=== PATIENT | male | born 1950 | race Caucasian/White ===

== ENCOUNTER 2017-10-15 07:35 | Outpatient (CLI) | payer MEDICARE, OTHER, SELFPAY ==
--- NOTE | 2017-10-15 07:38 | DI.RAD.S_ITS ---
PROCEDURE: PAIN L/S TRANSFORAMINAL INJECT INDICATIONS: Right lower extremity radiculopathy status post fusion FINDINGS: Fluoroscopic spot filming was performed to verify placement of spinal needles at the right L3-4 level(s), as labeled on the films. Appropriate location(s) of the needle tip(s) was confirmed by injection of iodinated contrast. IMPRESSION: Intraoperative verification of needle placement L3-4 level. Dictated by: James Eubanks M.D. on 10/15/2017 at 13:11 Approved by: James Eubanks M.D. on 10/15/2017 at 13:13
[2017-10-15 07:47] VITALS: BP 166/88; PULSE 66; RESP 18; TEMP 36.6; O2SAT 99
[2017-10-15 08:17] VITALS: BP 165/96; PULSE 65; RESP 16; O2SAT 99
[2017-10-15] MEDS: BUPIVACAINE 0.25% (PF) VIAL 2 ML INJ (08:21)
[2017-10-15] MEDS: IOPAMIDOL 15 ML VIAL 3 ML INJ (08:21)
[2017-10-15] MEDS: methylPREDNISolone acetate 80 MG/ML VIAL INJ (08:22)
[2017-10-15] MEDS: DEXAMETHASONE 10 MG/ML VIAL 20 MG INJ (08:22)
[2017-10-15 08:25] VITALS: BP 153/92; PULSE 65; RESP 16; O2SAT 98
--- NOTE | 2017-10-15 08:35 | P.PCN_ITS ---
Procedures Date/Time Date of procedure: 10/15/17 Time of procedure: 08:34 General Procedure description: PROVIDER: Jhon Kulkarni DO Operative Note PREOP DIAGNOSIS 1. FORAMINAL STENOSIS WITH LE SYMPTOMS, POST OP DIAGNOSIS 1. FORAMINAL STENOSIS WITH LE SYMPTOMS, PROCEDURES 1. FLUOROSCOPICALLY GUIDED CONTRAST CONTROLLED TRANSFORAMINAL EPIDURAL STEROID INJECTION - RIGHT L3/4 TFESI SURGEON: Jhon Kulkarni DO INDICATIONS Jhon is referred by for treatment of Foraminal Stenosis with right LE Symptoms FINDINGS Foraminal Nerve Root Compression secondary to disc disease and facet hypertrophy DESCRIPTION OF PROCEDURE Following denial of allergy and review of potential side effects and complications, including, but not necessarily limited to, infection, allergic reaction, local tissue breakdown, stroke, temporary or permanent nerve injury, paralysis, and possible , the patient indicated that the patient understood and agreed to proceed. An informed consent document was signed by the patient, witnessed by a nurse, and placed in the patient's chart. Additionally, other treatment options including medications, modalities, and physical therapy were reviewed with the patient. After review of previous anaesthesic history and IV conscious sedation the patient was deemed safe to proceed with todays procedure with IV conscious sedation as ASA class II designation. Safety time-out was performed to confirm patient ID, procedure to be performed and site of procedure. IV sedation was deemed not necessary. During the course of the procedure while the patient remained responsive to all verbal commands In the prone position following sterile prep and drape of the lumbar region, the right L3/4 posterior neuroforamen was identified fluoroscopically. The skin was anesthetized via a 25-gauge 1.5-inch needle with 1% lidocaine solution. At this point, a 25-gauge 3.5-inch spinal needle was atraumatically introduced and advanced under fluoroscopic guidance through the posterior right L3/4 neuroforamen to approximately the anterior aspect of the canal. Depth was confirmed on lateral view. Following negative aspiration, injection of approximately 1.5 cc of Isovue 200 under live fluoroscopy in the AP view confirmed excellent flow along the nerve root, into the epidural space without vascular or intrathecal uptake observed Radiological data, including multiple fluoroscopic views of the lumbosacral spine, reveal a spinal needle at the right L3/4 posterior neuroforamen. Subsequent views show flow of contrast material flowing superiorly and inferiorly along the nerve root confirming epidural flow. Subsequently, a test dose of 1.5 cc of 1% lidocaine solution was administered and patient was observed for two minutes for signs or symptoms of complications , including abdominal pain, shortness of breath, bilateral upper or lower extremity weakness, nausea and vomiting, prior to steroid injection. At this point, a total of 3 cc or 20 mg of dexamethasone and 80mg Depo medrol was injected without incident. The procedure tolerated the procedure well without signs or symptoms of complications prior to transfer to the recovery area continued monitoring without incident. The patient was then transferred to the recovery area where they were observed for an appropriate time after the injection. The patient reported a VAS score of 7 prior to the procedure and a post-procedure VAS of 0. Total Fluoroscopy Time: 24.2 seconds Total Conscious Sedation Time: 0min POST OP INSTRUCTIONS The patient was provided a Pain Log to continue to record their response to the target-specific procedure prior to follow-up visit with their referring physician. Additionally, specific post-injection care instructions and a contact number to our office were provided if concerns arise regarding possible complications associated with the procedure are suspected. Jhon Kulkarni DO Complications: none
[2017-10-15 08:41] VITALS: BP 138/72; PULSE 61; RESP 18; O2SAT 99
--- NOTE | 2017-10-15 08:47 | PC.NURSE ---
PT WALKED LENGTH OF HALLWAY TO RECREATE PAIN PER MD REQUEST. PT C/O 05/18 R LOWER BACK PAIN BUT STATES IT DOES NOT RADIATE TO LEFT SIDE AND IS BETTER THAN BEFORE THE PROCEDURE.
--- NOTE | 2017-10-16 17:46 | PC.NURSE ---
Follow up visit call, left message as patient was not at home or answering phone.
== END 2017-10-15 09:12 | disposition home or self-care (01) ==
LOC: RAD 07:37
PROVIDERS: PCP Family Medicine; Visit Provider Physical Medicine & Rehabilitation
DX: M48.061 Spinal stenosis, lumbar region without neurogenic claudication (principal); M51.16 Intervertebral disc disorders with radiculopathy, lumbar region; Z98.1 Arthrodesis status
CPT/HCPCS: 64483; J1040; J1100; J2250

== ENCOUNTER 2018-08-26 14:52 | Outpatient (CLI) | payer MEDICARE, OTHER, SELFPAY ==
[2018-08-26] VITALS (8 sets, daily range): BP systolic 126–159; BP diastolic 77–94; PULSE 56–70; RESP 16–18; TEMP 36.9; O2SAT 96–98
--- NOTE | 2018-08-26 14:55 | DI.RAD.S_ITS ---
PROCEDURE: PAIN L/S TRANSFORAMINAL INJECT INDICATIONS: RADICULOPATHY FINDINGS: Fluoroscopic spot filming was performed to verify placement of spinal needles at the L2-L3 level(s), as labeled on the films. Appropriate location(s) of the needle tip(s) was confirmed by injection of iodinated contrast. Dictated by: Jordan Gómez M.D. on 08/26/2018 at 16:12 Approved by: Jordan Gómez M.D. on 08/26/2018 at 16:13
[2018-08-26] MEDS: fentaNYL 100 MCG/2 ML INJ 50 MCG IV (15:26)
[2018-08-26] MEDS: MIDAZOLAM 5 MG/5 ML VIAL IV (15:26)
[2018-08-26] MEDS: BETAMETHASONE 30 MG/5 ML MDV 12 MG INJ (15:36)
[2018-08-26] MEDS: BUPIVACAINE 0.5% (PF) VIAL 2 ML INJ (15:36)
[2018-08-26] MEDS: IOPAMIDOL 15 ML VIAL 3 ML INJ (15:36)
--- NOTE | 2018-08-26 15:38 | PC.NURSE ---
ASSISTING PT OFF TABLE AND TRANSPORTING TO POST PROC AREA IN STABLE CONDITION
--- NOTE | 2018-08-26 15:43 | P.PCN_ITS ---
Procedures Date/Time Date of procedure: 08/26/18 Time of procedure: 15:40 General Procedure description: PROVIDER: Jhon Kulkarni DO Operative Note PREOP DIAGNOSIS 1. FORAMINAL STENOSIS WITH LE SYMPTOMS, POST OP DIAGNOSIS 1. FORAMINAL STENOSIS WITH LE SYMPTOMS, PROCEDURES 1. FLUOROSCOPICALLY GUIDED CONTRAST CONTROLLED TRANSFORAMINAL EPIDURAL STEROID INJECTION - RIGHT L2/3 TFESI SURGEON: Jhon Kulkarni, INDICATIONS Jhon is referred by Dr. Nicole for treatment of Foraminal Stenosis with right LE Symptoms FINDINGS Foraminal Nerve Root Compression secondary to disc disease and facet hypertrophy DESCRIPTION OF PROCEDURE Following review of allergy and review of potential side effects and complications, including, but not necessarily limited to, infection, allergic reaction, local tissue breakdown, stroke, temporary or permanent nerve injury, paralysis, and possible , the patient indicated that the patient understood and agreed to proceed. An informed consent document was signed by the patient, witnessed by a nurse, and placed in the patient's chart. Additionally, other treatment options including medications, modalities, and physical therapy were reviewed with the patient. After review of previous anaesthesic history and IV conscious sedation the patient was deemed safe to proceed with todays procedure with IV conscious sedation as ASA class II designation. Safety time-out was performed to confirm patient ID, procedure to be performed and site of procedure. IV sedation was accomplished with a combination of 3mg of Versed and 50mcg of Fentanyl was administered by the RN after DO order, titrated to patient comfort during the course of the procedure while the patient remained responsive to all verbal commands In the prone position following sterile prep and drape of the lumbar region, the right L2/3 posterior neuroforamen was identified fluoroscopically. The skin was anesthetized via a 25-gauge 1.5-inch needle with 1% lidocaine solution. At this point, a 25-gauge 3.5-inch spinal needle was atraumatically introduced and advanced under fluoroscopic guidance through the posterior right L2/3 neuroforamen to approximately the anterior aspect of the canal. Depth was confirmed on lateral view. Following negative aspiration, injection of approximately 1.5 cc of Isovue 200 under live fluoroscopy in the AP view confirmed excellent flow along the nerve root, into the epidural space without vascular or intrathecal uptake observed Radiological data, including multiple fluoroscopic views of the lumbosacral spine, reveal a spinal needle at the right L2/3 posterior neuroforamen. Subs equent views show flow of contrast material flowing superiorly and inferiorly along the nerve root confirming epidural flow. Subsequently, a test dose of 1.5 cc of 1% lidocaine solution was administered and patient was observed for two minutes for signs or symptoms of complications, including abdominal pain, shortness of breath, bilateral upper or lower extremity weakness, nausea and vomiting, prior to steroid injection. At this point, a total of 3cc or 18mg of dexamethasone was injected without incident. The patient tolerated the procedure well without signs or symptoms of complications prior to transfer to the recovery area continued monitoring without incident. The patient was then transferred to the recovery area where they were observed for an appropriate time after the injection. The patient reported a VAS score of 7 prior to the procedure and a post-procedure VAS of 0. Total Fluoroscopy Time: 24.2 seconds Total Conscious Sedation Time: 24min POST OP INSTRUCTIONS The patient was provided a Pain Log to continue to record their response to the target-specific procedure prior to follow-up visit with their referring physician. Additionally, specific post-injection care instructions and a contact number to our office were provided if concerns arise regarding possible complications associated with the procedure are suspected. Jhon Kulkarni, DO Complications: none
--- NOTE | 2018-08-26 15:51 | PC.NURSE ---
Pt returned from procedure awake and alert via wheelchair, able to get from W/C to chair without problems. Resumed monitoring from Bella ESPA[facility]A.
== END 2018-08-26 16:14 ==
LOC: RAD 14:54
PROVIDERS: PCP Family Medicine; Visit Provider Physical Medicine & Rehabilitation
DX: M48.061 Spinal stenosis, lumbar region without neurogenic claudication (principal); M51.16 Intervertebral disc disorders with radiculopathy, lumbar region
CPT/HCPCS: 64483; 99152; J0702; J2250; J3010

== ENCOUNTER 2018-10-02 13:20 | Outpatient (CLI) | payer MEDICARE, OTHER, SELFPAY ==
[2018-10-02] VITALS (9 sets, daily range): BP systolic 130–155; BP diastolic 67–91; PULSE 53–61; RESP 16; TEMP 36.1; O2SAT 95–100
--- NOTE | 2018-10-02 13:22 | DI.RAD.S_ITS ---
PROCEDURE: PAIN L/S FACET INJ/BLK 1ST LIZZ COMPARISON: None. INDICATIONS: SPINAL STENOSIS FINDINGS: 6 intraoperative fluoroscopy images demonstrate needle placement at the L2-L3 and L3-L4 facet joints bilaterally. IMPRESSION: Fluoroscopy for pain management. Dictated by: Maria Guadalupe Faria M.D. on 10/02/2018 at 17:38 Approved by: Maria Guadalupe Faria M.D. on 10/02/2018 at 17:38
[2018-10-02] MEDS: fentaNYL 100 MCG/2 ML INJ 50 MCG IV (14:45)
[2018-10-02] MEDS: MIDAZOLAM 5 MG/5 ML VIAL IV (14:45)
[2018-10-02] MEDS: IOPAMIDOL 15 ML VIAL 3 ML INJ (14:54)
[2018-10-02] MEDS: BUPIVACAINE 0.5% (PF) VIAL 5 ML INJ (14:54)
[2018-10-02] MEDS: LIDOCAINE 1% 20 ML INJ 10 ML INJ (14:55)
[2018-10-02] MEDS: BETAMETHASONE 30 MG/5 ML MDV 12 MG INJ (14:55)
--- NOTE | 2018-10-02 14:57 | PC.NURSE ---
Pt tolerated procedure well. Able to get off table with standby assist. Transferred pt to preprocedure room via wheelchair for continued monitoring with Bella ESPA[facility]A.
--- NOTE | 2018-10-02 15:03 | P.PCN_ITS ---
Procedures Date/Time Date of procedure: 10/02/18 Time of procedure: 15:01 General Procedure description: PREOP DIAGNOSIS 1. FACET ARTHROPATHY, 2. AXIAL LBP, 3. MULTILEVEL DDD, POST OP DIAGNOSIS 1. FACET ARTHROPATHY, 2. AXIAL LBP, 3. MULTILEVEL DDD, PROCEDURES 1. FLUORSCOPICALLY GUIDED CONTRAST CONTROLLED FACET JOINT INJECTIONS BILATERAL L2/3, L3/4 SURGEON: Jhon Kulkarni, INDICATION Jhon is referred by Dr. Nicole is referred for treatment of Axial LBP FINDINGS Multilevel Facet Arthropathy with Clinically significant axial LBP DESCRIPTION OF PROCEDURE Fluoroscopically guided, contrast-controlled bilateral L2/3, L3/4 facet joint injections. Following review of allergy and review of potential side effects and complications, including, but not necessarily limited to, infection, allergic reaction, local tissue breakdown, stroke, temporary or permanent nerve injury, paralysis, and possible , the patient indicated that the patient understood and agreed to proceed. An informed consent document was signed by the patient, witnessed by a nurse, and placed in the patient's chart. Additionally, other treatment options including medications, modalities, and physical therapy were reviewed with the patient. After review of previous anaesthesic history and IV conscious sedation the patient was deemed safe to proceed with todays procedure with IV conscious sedation as ASA class II designation. Safety time-out was performed to confirm patient ID, procedure to be performed and site of procedure. IV sedation was accomplished with a combination of 2mg of Versed and 50mcg of Fentanyl administered by the RN after DO order, titrated to patient comfort during the course of the procedure while the patient remained responsive to all verbal commands In the prone position, following sterile prep and drape of the lumbar region, the posterior aspect of the L2/3, L3/4 facet joints were identified fluoroscopically. The skin was anesthetized via a 25-gauge 1.5-inch needle with 1% lidocaine solution into the corresponding facet joints. At this point, a 22- gauge 3.5-inch spinal needle was atraumatically introduced and advanced under fluoroscopic guidance into the corresponding facet joints. Following negative aspiration, injections of approximately 0.2-cc of Isovue 200 confirmed interarticular placement without vascular uptake. The identical procedure was then performed at the L2/3, L3/4 facet joints on the left. Radiological data, including multiple fluoroscopic views of the lumbosacral spine, reveal a spinal needle at the L2/3, L3/4 facet joints bilaterally. Subsequent views show flow of contrast material both superiorly and inferiorly within the joint space without vascular or intrathecal uptake. At this point, a total of 0.5 cc including a mixture of 0.25cc Marcaine and 0.25 cc betamethasone was injected without complication into each of the corresponding facet joints. The patient tolerated the procedure well without signs or symptoms of complications prior to transfer to the recovery area continued monitoring without incident. The patient was then transferred to the recovery area where they were observed for an appropriate period of time after the injection. The patient reported a VAS score of 7 prior to the procedure and a post-procedure VAS of 0. Total Fluoroscopy Time: 20.3 seconds Total Conscious Sedation Time: 24min POST OP INSTRUCTIONS The patient was provided a Pain Log to continue to record their response to the target-specific procedure prior to follow-up visit with their referring physician. Additionally, specific post-injection care instructions and a contact number to our office were provided if concerns arise regarding possible complications associated with the procedure are suspected. Jhon Kulkarni DO Complications: none
== END 2018-10-02 15:26 | disposition home or self-care (01) ==
LOC: RAD 13:22
PROVIDERS: PCP Family Medicine; Visit Provider Physical Medicine & Rehabilitation
DX: M47.816 Spondylosis without myelopathy or radiculopathy, lumbar region (principal); M54.17 Radiculopathy, lumbosacral region; M47.817 Spondylosis without myelopathy or radiculopathy, lumbosacral region
CPT/HCPCS: 64493; 64494; 99152; J0702; J2250; J3010

== ENCOUNTER 2019-11-14 23:02 | Emergency (ER) | payer MEDICARE, OTHER, SELFPAY ==
--- NOTE | 2019-11-14 23:03 | DI.RAD.S_ITS ---
PROCEDURE: XR SHOULDER RT 1V INDICATIONS: Shoulder dislocation TECHNIQUE: 1 views of the shoulder were acquired. COMPARISON: [facility], CR, XR SHOULDER RT MIN 2V, 11/15/2019, 1:02. FINDINGS: This study is limited by overlying radiopaque material, presumed to be an ice pack. Bones: The right humeral head is dislocated inferiorly to the right glenoid. Age-appropriate bony degenerative changes are seen. Soft tissues: No suspicious soft tissue calcifications. The visualized lung demonstrates an unremarkable appearance. IMPRESSION: Right inferior shoulder dislocation, with luxatio erecta. Dictated by: Christopher Caldwell M.D. on 11/15/2019 at 9:06 Approved by: Christopher Caldwell M.D. on 11/15/2019 at 9:08
[2019-11-14 23:09] VITALS: BP 162/98; PULSE 60; RESP 18; TEMP 37.1; O2SAT 98; BMI 32.3
[2019-11-14 23:30] VITALS: BP 160/82; PULSE 59; O2SAT 98
--- NOTE | 2019-11-14 23:40 | ED_ITS ---
HPI - Extremity Injury (Upper) General Chief Complaint: Extremity Injury, Upper Stated Complaint: Dislocated shoulder Time Seen by Provider: 11/14/19 23:05 Source: patient and EMS Mode of arrival: Ambulatory Limitations: no limitations History of Present Illness HPI narrative: 68-year-old male daily drinker and nonsmoker with history of hypertension presents with a chief complaint of a right shoulder injury suffered this evening. He was walking up some stairs and tripped and fell forward onto his right arm and now has significant pain and decreased range of motion secondary to pain and mechanical obstruction. He denies any head neck or back pain. He strongly suspects that he has dislocated shoulder. He does have some tingling in the fingertips of his right arm. He is right-handed. He denies any history of dislocation but does have a rotator cuff history on the side of his injury. He injured himself on [facility] and brought himself to [facility] on his own boat. He called 911 and EMS met him at the dock, placed and IV, and transported him here. He was given some pain control by EMS MD complaint: injury to: right and shoulder Onset (ago): hour(s) Other injuries: none Handedness: right Place: home Severity: moderate Relieving factors: none Exacerbating factors: movement of extremity Context: fall and direct blow Associated symptoms: numbness Treatments prior to arrival: cold therapy Related Data Home Medications Medication Instructions Recorded Confirmed allopurinol 100 mg tablet 100 mg PO DAILY 10/04/17 08/18/18 amlodipine 5 mg tablet 5 mg PO DAILY 10/04/17 08/18/18 diazepam 10 mg tablet 10 mg PO TID PRN 10/04/17 08/18/18 gabapentin 300 mg capsule 300 mg PO DAILY 10/04/17 08/18/18 lisinopril 20 mg tablet 20 mg PO DAILY 10/04/17 08/18/18 metoprolol tartrate 50 mg tablet 50 mg PO BID 10/04/17 08/18/18 aspirin 325 mg tablet 325 mg PO Q12H tab 09/16/18 09/16/18 docusate sodium 100 mg capsule 100 mg PO Q12H PRN cap 09/16/18 09/16/18 fexofenadine 30 mg disintegrating 30 mg PO BID PRN tab 09/16/18 09/16/18 tablet lansoprazole 30 mg capsule,delayed 30 mg PO DAILY 09/16/18 09/16/18 release oxycodone-acetaminophen 5 mg-325 1 - 2 tab PO Q4-6H PRN tab 09/16/18 09/16/18 mg tablet tramadol 50 mg tablet 50 mg PO Q4-6H PRN tab 09/16/18 09/16/18 Allergies Allergy/AdvReac Type Severity Reaction Status Date / Time No Known Drug Allergies Allergy Verified 11/14/19 23:09 Review of Systems Constitutional Constitutional: Denies chills, Denies fatigue, Denies fever(s), Denies frequent falls, Denies lethargy and Denies weakness Eyes Eyes: Denies change in vision, Denies eye discharge, Denies irritation and Denies loss of vision ENT Ears, Nose, Mouth, and Throat: Denies change in voice, Denies dizziness, Denies neck pain, Denies sore throat and Denies throat swelling Cardiovascular Cardiovascular: Denies chest pain, Denies irregular heart rhythm, Denies lightheadedness, Denies palpitations, Denies dyspnea, Denies dyspnea on exertion and Denies orthopnea Respiratory Respiratory: Denies cough, Denies dyspnea, Denies dyspnea on exertion and Denies wheezing Gastrointestinal Gastrointestinal: Denies abdominal pain, Denies change in bowel habits, Denies diarrhea, Denies nausea and Denies vomiting Musculoskeletal Musculoskeletal: Reports deformity, Reports arthralgias, Reports joint swelling, Denies neck pain and Denies numbness Integumentary/Breasts Skin/Breast: Denies pruritus, Denies erythema, Denies rash and Denies wounds Neurologic Neurologic: Denies behavioral changes, Denies confusion, Denies dizziness, Denies frequent falls, Denies loss of vision, Denies numbness and Denies weakness Psychiatric Psychiatric: Denies anxiety, Denies behavioral changes, Denies confusion, Denies depression, Denies homicidal ideation and Denies suicidal ideation Endocrine Endocrine: Denies fatigue, Denies flushing and Denies palpitations Hematologic/Lymphatic Hematologic/Lymphatic: Denies easy bruising Allergic/Immunologic Allergic/Immunologic: Denies urticaria, Denies throat swelling and Denies wheezing Patient History Social History Smoking Status: Never smoker alcohol intake: current substance use type: does not use Smoking Status: Never smoker alcohol intake frequency: 3 or more drinks per day Substance Use Type: does not use Exam Narrative Exam Narrative: GEN: AOx3 and in mild distress EYES: Pupils are equal, round, and reactive to light and accommodation. Extraoccular muscles are intact bilaterally. There is no subconjunctival hemorrhage or exudate. CHEST: Lungs are clear to auscultation bilaterally and free of wheezes, rales, or rhonchi. Heart rate is regular rhythm, there are no murmurs, clicks, rubs, or gallops. There is no chest wall tenderness. ABD: Abdomen is soft and nontender. There is no guarding or rebound. Bowel sounds are normal in all 4 quadrants. There is no mass or organomegaly. EXT: Obvious deformity right shoulder, arm held overhead due to the mechanical obstruction. Patient does have some tingling of the fingers of his right hand, radial pulse intact. SKIN: Warm, pink, and dry. No erythema or rash Initial Vital Signs Initial Vital Signs: Vital Signs Temperature 98.7 F 11/14/19 23:09 Pulse Rate 60 11/14/19 23:09 Respiratory Rate 18 11/14/19 23:09 Blood Pressure 162/98 H 11/14/19 23:09 Pulse Oximetry 98 11/14/19 23:09 Procedures Orthopedic Joint Reduction Joint #1: Time Out Performed: Yes Side: right Joint Reduction Location: shoulder Analgesia: procedural sedation Shoulder Technique Used (if applicable): traction/counter-traction, scapula manipulation and external rotation Post-reduction neuro exam: intact Post-reduction vascular: intact Post Reduction X-Ray Obtained: Yes Post Reduction X-Ray Results: reduced Splint Applied: Yes Patient Tolerated Procedure: Well Orthopedic Splinting/Casting Injury #1: Side: right Upper Extremity Injury Location: shoulder Upper Extremity Immobilizer: sling/shoulder immobilizer Post splinting neuro exam: intact Post splinting vascular exam: intact Placed by: Nursing Procedural Sedation Consent signed: Yes Time out performed: Yes Indication: fracture/dislocation reduction ASA Class: II Mallampati Airway Classification: Class II Preparation: general medical practitioner applied, pulse oximeter, capnometry used, supplemental O2 applied, suction/airway equipment at bedside and IV secured IV Propofol dose (mg): 200 Intraservice time/total sedation time (min): 10 ED Sedation Level: Moderate (Concious) Patient Tolerated Procedure: Well Complications: none Course Orders Ordered: ED Orders 11/14/19 23:03 XR shoulder LT 1V Stat 11/15/19 00:16 XR shoulder RT min 2V Stat Discontinued Medications Propofol (Diprivan) 220 mg 2 mg/kg (220 mg) IV NOW ONE Stop: 11/14/19 23:42 Last Admin: 11/15/19 00:12 Dose: 200 mg Documented by: AUGUSTIN Vital Signs Vital signs: Vital Signs - 8 hr 11/14/19 23:09 11/14/19 23:30 11/15/19 00:00 Temperature 98.7 F Pulse Rate 60 59 L 66 Respiratory Rate 18 17 Blood Pressure 162/98 H 160/82 H 165/83 H Blood Pressure [Left Arm] 165/83 H Pulse Oximetry 98 98 97 11/15/19 00:15 11/15/19 00:20 11/15/19 00:21 Temperature Pulse Rate 60 67 67 Respiratory Rate 17 16 18 Blood Pressure 120/77 Blood Pressure [Left Arm] 179/101 H 120/77 Pulse Oximetry 97 97 98 11/15/19 00:25 11/15/19 00:26 11/15/19 00:30 Temperature Pulse Rate 69 65 63 Respiratory Rate 20 16 11 L Blood Pressure 128/68 146/68 H Blood Pressure [Left Arm] Pulse Oximetry 98 98 11/15/19 00:35 11/15/19 00:37 11/15/19 00:40 Temperature Pulse Rate 64 66 66 Respiratory Rate 12 13 13 Blood Pressure 152/75 H 158/77 H 147/73 H Blood Pressure [Left Arm] Pulse Oximetry 97 99 99 11/15/19 00:45 Temperature Pulse Rate 65 Respiratory Rate 10 L Blood Pressure 162/79 H Blood Pressure [Left Arm] Pulse Oximetry 98 Discharge Plan Departure Patient Disposition: Home Clinical Impression: Anterior shoulder dislocation Qualifiers: Encounter type: initial encounter Laterality: right Qualified Code(s): S43.014A - Anterior dislocation of right humerus, initial encounter Discharge Date/Time: 11/15/19 01:43 Instructions: DI for Shoulder Dislocation Activity Restrictions/Additional Instructions: *You have been diagnosed with [right shoulder dislocation] *What to do: *Take medications as directed *Follow up with your primary care provider in 2-3 days, call for an appointment. Let them know you were seen in the Emergency Department and that we ask that you be seen in follow up. Additionally, I have given you contact information for the orthopedist on-call so you may follow-up as you surely of damage the soft tissue of her shoulder to your injury *Return to ER if you should have any new, worsening or concerning symptoms Prescriptions: No Action lisinopril 20 mg tablet 20 mg PO DAILY RF: 0 amlodipine 5 mg tablet 5 mg PO DAILY RF: 0 allopurinol 100 mg tablet 100 mg PO DAILY RF: 0 metoprolol tartrate 50 mg tablet 50 mg PO BID RF: 0 gabapentin 300 mg capsule 300 mg PO DAILY RF: 0 diazepam [Valium] 10 mg tablet 10 mg PO TID PRNRF: 0 fexofenadine 30 mg tablet,disintegrating 30 mg PO BID PRNRF: 0 aspirin 325 mg tablet 325 mg PO Q12H RF: 0 docusate sodium 100 mg capsule 100 mg PO Q12H PRNRF: 0 lansoprazole 30 mg capsule,delayed release(DR/EC) 30 mg PO DAILY RF: 0 oxycodone-acetaminophen 5-325 mg tablet 1 - 2 tab PO Q4-6H PRNRF: 0 tramadol 50 mg tablet 50 mg PO Q4-6H PRNRF: 0 Referrals: Arnie Solano MD [Physician] - Lawrence Nicole MD [Primary Care Provider] -
[2019-11-15] VITALS (11 sets, daily range): BP systolic 120–179; BP diastolic 68–101; PULSE 60–69; RESP 10–20; O2SAT 97–99
--- NOTE | 2019-11-15 00:16 | DI.RAD.S_ITS ---
PROCEDURE: XR SHOULDER RT MIN 2V INDICATIONS: post reduction. TECHNIQUE: 2 views of the shoulder were acquired. COMPARISON: [facility], CR, XR SHOULDER RT 1V, 11/14/2019, 23:27. FINDINGS: Bones: The right shoulder has been relocated. No soledad fracture line can be seen by plain film. The visualized ribs appear intact. Age-appropriate bony degenerative changes are seen. Moderate subacromial spurring is seen. Soft tissues: No suspicious soft tissue calcifications. The visualized lung demonstrates an unremarkable appearance. IMPRESSION: Right shoulder relocation. No associated fracture is seen on this plain film study. If there is strong clinical concern for a fracture not seen on these images, then please consider a dedicated shoulder CT for further evaluation. Dictated by: Christopher Caldwell M.D. on 11/15/2019 at 7:23 Approved by: Christopher Caldwell M.D. on 11/15/2019 at 7:24
[2019-11-15] MEDS: propofoL 200 MG/20 ML VIAL 220 MG IV (00:32)
== END 2019-11-15 01:43 | disposition home or self-care (01) ==
PROVIDERS: Emergency Provider Emergency Medicine; PCP Family Medicine
DX: S43.014A Anterior dislocation of right humerus, initial encounter (principal); W01.0XXA Fall on same level from slipping, tripping and stumbling without subsequent striking against object, initial encounter
CPT/HCPCS: 23650; 73020; 73030; 94770; 99152; 99284; 99285; J2704

== ENCOUNTER → 2019-11-25 06:37 | Outpatient (CLI) | payer MEDICARE, OTHER, SELFPAY ==
--- NOTE | 2019-11-25 | DI.MRI.S_ITS ---
PROCEDURE: MR SHOULDER RT WO CON INDICATIONS: Superior glenoid labrum lesion of right shoulder, TECHNIQUE: Noncontrast oblique coronal T2 fast spin echo with fat saturation, oblique sagittal T1 spin echo and T2 fast spin echo with fat saturation, axial T1 spin echo and T2 fast spin echo with fat saturation through the shoulder. COMPARISON: None. FINDINGS: Image quality: Excellent. Rotator cuff: There is full-thickness rupture involving distal supraspinatus and anterior fibers of distal infraspinatus at their insertions on humeral head with up to 4.3 cm medial retraction of torn tendon fibers to the level of acromion. Tendinosis and moderate grade articular surface partial thickness tear involving mid to posterior fibers of distal infraspinatus is seen. Distal subscapularis tendinosis and moderate grade intrasubstance partial-thickness tear is seen. Sagittal images demonstrate moderate supraspinatus and infraspinatus muscle atrophy. Bones and bursae: No bone marrow contusions or fractures. Moderate acromioclavicular joint osteoarthritis is seen. Mild to moderate glenohumeral joint osteoarthritis is also noted with superior migration of humeral head in relation to glenoid. Moderate amount of joint effusion and subacromial subdeltoid bursal fluid is seen. Capsule and soft tissues: In the absence of intra-articular contrast, there is suggestion of superior labral tear at 11 to 1 o'clock position. Extensive signal abnormality involving inferior labrum at 5 to 6 o'clock position is also seen. The glenohumeral ligaments appear intact. The long head of the biceps tendon is not well-visualized intra-articularly. The rotator interval appears normal, without fibrosis. The coracohumeral ligament is normal in thickness. IMPRESSION: 1. Full-thickness rupture involving distal supraspinatus and anterior fibers of distal infraspinatus at their insertions on humeral head with up to 4.3 cm medial retraction of torn tendon fibers to the level of acromion. Moderate supraspinatus and infraspinatus muscle atrophy. 2. Tendinosis and moderate grade articular surface partial-thickness tear involving mid to posterior fibers of distal supraspinatus. Moderate grade partial-thickness tear involving superior to mid fibers of distal subscapularis. 3. Moderate acromioclavicular joint and glenohumeral joint osteoarthritis. Moderate amount of joint fluid and subacromial subdeltoid bursal fluid. 4. Suggestion of superior labral tear at 11 to 1 o'clock position and anterior-inferior labral tear at 5 to 6 o'clock position. 5. Nonvisualization of proximal intra-articular portion of long head of biceps tendon suggestive of proximal bicipital tendon rupture. Dictated by: Charlie Fink M.D. on 11/25/2019 at 8:11 Approved by: Charlie Fink M.D. on 11/25/2019 at 8:16
== END ==
PROVIDERS: PCP Family Medicine; Referring Provider Orthopaedic Surgery; Visit Provider Orthopaedic Surgery
DX: S43.431S Superior glenoid labrum lesion of right shoulder, sequela (principal); M75.121 Complete rotator cuff tear or rupture of right shoulder, not specified as traumatic; M19.011 Primary osteoarthritis, right shoulder
CPT/HCPCS: 73221

== ENCOUNTER → 2020-08-29 11:11 | Outpatient (CLI) | payer MEDICARE, OTHER, SELFPAY ==
--- NOTE | 2020-08-29 11:14 | DI.MRI.S_ITS ---
PROCEDURE: MR LUMBAR SPINE WO CON INDICATIONS: Lumbar radiculopathy status post fusion TECHNIQUE: Noncontrast sagittal T1 spin echo and T2 fast echo, sagittal STIR, axial T1 and T2 fast spin echo through the lumbar spine. In cases with scoliosis, additional coronal T2 fast spin echo may be performed. COMPARISON: [facility], MR, MR LUMBAR SPINE WITHOUT CONTRAST, 04/23/2017, 8:43. FINDINGS: Image quality: Excellent. Alignment and Curvature: Grade 1 retrolisthesis of L2 on L3. Bone Marrow: No evidence of acute fracture. Multilevel degenerative endplate sclerosis and spurring. Diffuse facet arthropathy. Scattered small Schmorl's nodes are noted. Postsurgical changes related to posterior spinal fixation at the L4-L5 level as before. Spinal Cord: Conus medullaris terminates at the L1 level. Visualized cord demonstrates normal signal and size. Paraspinous Soft Tissues: No paravertebral masses. Diffuse dorsal epidural lipomatosis seen throughout the lumbar spine. T12-L1: Normal appearance. L1-L2: Mild canal narrowing. Partial effacement of both lateral recesses with bilaterally symmetric appearance. Moderate right foraminal stenosis. Mild left foraminal narrowing. No interval change. L2-L3: Moderate canal narrowing. Partial effacement of both lateral recesses with bilaterally symmetric appearance. No interval change. Moderate bilateral foraminal narrowing which is unchanged L3-L4: Mild canal narrowing. Partial effacement of both lateral recesses with bilaterally symmetric appearance. Moderate right foraminal stenosis and mild left foraminal stenosis which are unchanged. L4-L5: No high-grade residual canal narrowing. Lateral recesses appear grossly patent. Mild bilateral foraminal stenoses, with no interval change. L5-S1: Severe canal narrowing which is largely due to circumferential epidural lipomatosis as before. Partial effacement of both lateral recesses with bilaterally symmetric appearance. Moderate bilateral foraminal narrowing with unchanged appearance IMPRESSION: Overall, grossly unchanged examination since 04/23/17 as above. Prominent diffuse epidural lipomatosis as before. Dictated by: Jordan Gómez M.D. on 08/29/2020 at 13:16 Approved by: Jordan Gómez M.D. on 08/29/2020 at 13:28
== END ==
PROVIDERS: PCP Family Medicine; Referring Provider Physical Medicine & Rehabilitation; Visit Provider Physical Medicine & Rehabilitation
DX: M54.17 Radiculopathy, lumbosacral region (principal); Z98.1 Arthrodesis status; E88.2 Lipomatosis, not elsewhere classified
CPT/HCPCS: 72148

== ENCOUNTER → 2020-09-06 08:13 | Outpatient (CLI) | payer MEDICARE, OTHER, SELFPAY ==
[2020-09-06 14:37] LABS: COVID19 -Nasal RAPID Negative (Negative)
== END ==
PROVIDERS: PCP Family Medicine; Visit Provider Physical Medicine & Rehabilitation
DX: Z20.822 Contact with and (suspected) exposure to COVID-19 (principal)
CPT/HCPCS: 87635; C9803

== ENCOUNTER 2020-09-08 12:52 | Outpatient (CLI) | payer MEDICARE, OTHER, SELFPAY ==
[2020-09-08] VITALS (8 sets, daily range): BP systolic 111–149; BP diastolic 69–86; PULSE 62–68; RESP 14–20; TEMP 36.4; O2SAT 97–99
--- NOTE | 2020-09-08 12:53 | DI.RAD.S_ITS ---
PROCEDURE: PAIN L INTERLAMINAR/CAUDAL INJ INDICATIONS: SPONDYLOSIS COMPARISON: [facility], MR, MR LUMBAR SPINE WO CON, 08/29/2020, 11:15. [facility], CR, XR LUMBAR SPINE WITH FLEXION EXTENSION 5 VIEWS, 08/18/2020, 16:11. FINDINGS: Fluoroscopic spot filming was performed to verify placement of spinal needles at the L5-S1 level(s), as labeled on the films. Appropriate location(s) of the needle tip(s) was confirmed by injection of iodinated contrast. IMPRESSION: Fluoroscopy guidance for pain management. Dictated by: Maria Guadalupe Faria M.D. on 09/08/2020 at 15:23 Approved by: Maria Guadalupe Faria M.D. on 09/08/2020 at 15:24
[2020-09-08] MEDS: MIDAZOLAM 5 MG/5 ML VIAL IV (13:35)
[2020-09-08] MEDS: fentaNYL 100 MCG/2 ML INJ 50 MCG IV (13:35)
[2020-09-08] MEDS: IOPAMIDOL 15 ML VIAL 3 ML INJ (13:41)
[2020-09-08] MEDS: BUPIVACAINE 0.25% (PF) VIAL 2 ML INJ (13:42)
[2020-09-08] MEDS: methylPREDNISolone acetate 80 MG/ML VIAL INJ (13:42)
[2020-09-08] MEDS: DEXAMETHASONE 10 MG/ML VIAL 20 MG INJ (13:42)
--- NOTE | 2020-09-08 13:56 | PM.PROC.IR.1 ---
Date/Time/Diagnoses Date of procedure: 09/08/20 Time of procedure: 13:56 Pre-procedure diagnosis: 1. HNP WITH RADICULAR FEATURES, 2. MULTILEVEL CENTRAL STENOSIS, Post-procedure diagnosis: same Procedure Notes Procedure: 1. FLUOROSCOPICALLY GUIDED CONTRAST CONTROLLED INTERLAMINAR EPIDURAL STEROID INJECTION - L5/S1 Indications: Jhon is referred by Dr. Nicole for treatment of Bilateral Foraminal Stenosis L>R LE symptoms. Physician: Jhon Kulkarni Total Fluoroscopy time (seconds): 4 Total sedation minutes: 12 Complications: none Procedure in detail & Post-procedure care: FINDINGS Multilevel Central Spinal Stenosis with Nerve Root Compression DESCRIPTION OF PROCEDURE Fluoroscopically guided, contrast-controlled L5/S1 translaminar epidural steroid injection. Following review of allergy and review of potential side effects and complications, including, but not necessarily limited to, infection, allergic reaction, local tissue breakdown, temporary as well as permanent nerve injury, paralysis, stroke and possible , the patient indicated that the patient understood and agreed to proceed. An informed consent document was signed by the patient, witnessed by a nurse, and placed in the patient's chart. Additionally, other treatment options including modalities, medications, and physical therapy were reviewed with the patient. After review of previous anaesthesic history and IV conscious sedation the patient was deemed safe to proceed with today?s procedure with IV conscious sedation as ASA class II designation. Safety time-out was performed to confirm patient ID, procedure to be performed and site of procedure. IV sedation was accomplished with a combination of 2mg of Versed and 50mcg of Fentanyl administered by the RN after DO order, titrated to patient comfort during the course of the procedure while the patient remained responsive to all verbal commands. In the prone position, following sterile prep and drape of the lumbar region, the L5/S1 translaminar space was identified fluoroscopically. The skin was anesthetized via a 25-gauge, 1.5-inch needle with 1% lidocaine solution. At this point, a 22-gauge short bevel spinal needle was atraumatically introduced and advanced under fluoroscopic guidance into the region of the L5/S1 translaminar space. Depth was confirmed on lateral view. Radiological data, including multiple fluoroscopic views of the lumbar spine, reveal a spinal needle at the L5/S1 translaminar space. Lateral views then show placement of the needle in the epidural space. Subsequent views show contrast material flowing superiorly and inferiorly in the epidural space. No vascular or intrathecal uptake is observed. At this point, using loss of resistance technique with saline and air, the epidural space was entered. This was confirmed following negative aspiration with injection of approximately 1.5cc of Isovue 200, showing excellent epidural flow without vascular or intrathecal uptake. At this point, 1cc of 1% lidocaine solution combined with 3cc or 20mg of dexamethasone and 80mg of Depo medrol was injected without incident. The patent tolerated the procedure without signs of symptoms of complications prior to transfer to the recovery area for further monitoring. The patient was then transferred to the recovery area where they were observed for an appropriate period of time after the injection. The patient reported a VAS score of 6 prior to the procedure and a post-procedure VAS of 0. POST OP INSTRUCTIONS The patient was provided a Pain Log to continue to record their response to the target-specific procedure prior to follow-up visit with their referring physician. Additionally, specific post-injection care instructions and a contact number to our office were provided if concerns arise regarding possible complications associated with the procedure are suspected.
== END 2020-09-08 14:16 | disposition home or self-care (01) ==
LOC: RAD 12:53
PROVIDERS: PCP Family Medicine; Referring Provider Physical Medicine & Rehabilitation; Visit Provider Physical Medicine & Rehabilitation
DX: M51.17 Intervertebral disc disorders with radiculopathy, lumbosacral region (principal); M48.07 Spinal stenosis, lumbosacral region
CPT/HCPCS: 62323; 99152; J1040; J1100; J2250; J3010

== ENCOUNTER → 2021-04-03 10:39 | Outpatient (CLI) | payer MEDICARE, OTHER, SELFPAY ==
[2021-04-03 13:42] LABS: COVID19 -Nasal RAPID Negative (Negative)
== END ==
PROVIDERS: PCP Family Medicine; Referring Provider Physical Medicine & Rehabilitation; Visit Provider Physical Medicine & Rehabilitation
DX: Z20.822 Contact with and (suspected) exposure to COVID-19 (principal)
CPT/HCPCS: 87635; C9803

== ENCOUNTER 2021-04-04 12:33 | Outpatient (CLI) | payer MEDICARE, OTHER, SELFPAY ==
[2021-04-04] VITALS (9 sets, daily range): BP systolic 111–151; BP diastolic 55–88; PULSE 54–63; RESP 12–20; TEMP 36.3; O2SAT 97–100
--- NOTE | 2021-04-04 12:36 | DI.RAD.S_ITS ---
PROCEDURE: PAIN L/S FACET INJ/BLK 1ST LIZZ COMPARISON: [facility], XA, PAIN L/S FACET INJ/BLK 1ST LIZZ, 10/02/2018, 14:50. INDICATIONS: SPONDYLOSIS FINDINGS: Access needles noted at the bilateral L5-S1 facets. Injection of small amount of high dilated contrast confirms localization of the needle tips in the bilateral L5-S1 facets. IMPRESSION: Access needles in the bilateral L5-S1 facets. Dictated by: Radha Leal MD, PhD on 04/04/2021 at 14:53 Approved by: Radha Leal MD, PhD on 04/04/2021 at 14:54
[2021-04-04] MEDS: IOPAMIDOL 15 ML VIAL 3 ML INJ (13:20)
[2021-04-04] MEDS: fentaNYL 100 MCG/2 ML INJ 50 MCG IV (13:20)
[2021-04-04] MEDS: BUPIVACAINE 0.5% (PF) VIAL 2 ML INJ (13:23)
[2021-04-04] MEDS: BETAMETHASONE 30 MG/5 ML MDV 12 MG INJ (13:24)
[2021-04-04] MEDS: MIDAZOLAM 5 MG/5 ML VIAL IV (13:24)
--- NOTE | 2021-04-04 13:35 | P.PCN_ITS ---
Date/Time/Diagnoses Date of procedure: 04/04/21 Time of procedure: 13:35 Pre-procedure diagnosis: 1. FACET ARTHROPATHY, 2. AXIAL LBP, 3. MULTILEVEL DDD This procedure is found to meet the Governor's proclamation 20-24.2 regarding non urgent procedures. This patient meets multiple criteria for the procedure including continuing or worsening of significant or severe pain, combined with further deterioration of the patient's condition or overall health as well as delay in treatment would be expected to result in less positive ultimate medical outcome. Therefore the decision to perform the procedure in an outpatient hospital setting is found to be in accordance with guidelines of the procl amation. Post-procedure diagnosis: same Procedure Notes Procedure: 1. FLUORSCOPICALLY GUIDED CONTRAST CONTROLLED FACET JOINT INJECTIONS BILATERAL L5/S1 Indications: Jhon is referred by Dr. Nicole for treatment of Axial LBP Physician: Jhon Kulkarni Total Fluoroscopy time (seconds): 10 Total sedation minutes: 10 Complications: none Procedure in detail & Post-procedure care: DESCRIPTION OF PROCEDURE Fluoroscopically guided, contrast-controlled bilateral L5/S1 facet joint injections. Following review of allergy and review of potential side effects and complications, including, but not necessarily limited to, infection, allergic reaction, local tissue breakdown, stroke, temporary or permanent nerve injury, paralysis, and possible , the patient indicated that the patient understood and agreed to proceed. An informed consent document was signed by the patient, witnessed by a nurse, and placed in the patient's chart. Additionally, other treatment options including medications, modalities, and physical therapy were reviewed with the patient. After review of previous anaesthesic history and IV conscious sedation the patient was deemed safe to proceed with today?s procedure with IV conscious sedation as ASA class II designation. Safety time-out was performed to confirm patient ID, procedure to be performed and site of procedure. IV sedation was accomplished with a combination of 3mg of Versed and 50mcg of Fentanyl administered by the RN after DO order, titrated to patient comfort during the course of the procedure while the patient remained responsive to all verbal commands In the prone position, following sterile prep and drape of the lumbar region, the posterior aspect of the L5/S1 facet joints were identified fluoroscopically. The skin was anesthetized via a 25-gauge 1.5-inch needle with 1% lidocaine solution into the corresponding facet joints. At this point, a 22-gauge 3inch spinal needle was atraumatically introduced and advanced under fluoroscopic guidance into the corresponding facet joints. Following negative aspiration, injections of approximately 0.2cc of Isovue 200 confirmed interarticular placement without vascular uptake. The identical procedure was then performed at the L5/S1 facet joints on the left. Radiological data, including multiple fluoroscopic views of the lumbosacral spine, reveal a spinal needle at the L5/S1 facet joints bilaterally. Subsequent views show flow of contrast material both superiorly and inferiorly within the joint space without vascular or intrathecal uptake. At this point, a total of 0.5cc including a mixture of 0.25cc Marcaine and 0.25cc betamethasone was injected without complication into each of the co rresponding facet joints. The patient tolerated the procedure well without signs or symptoms of complications prior to transfer to the recovery area continued monitoring without incident. The patient was then transferred to the recovery area where they were observed for an appropriate period of time after the injection. The patient reported a VAS score of 7 prior to the procedure and a post-procedure VAS of 0. POST OP INSTRUCTIONS The patient was provided a Pain Log to continue to record their response to the target-specific procedure prior to follow-up visit with their referring physician. Additionally, specific post-injection care instructions and a contact number to our office were provided if concerns arise regarding possible complications associated with the procedure are suspected.
== END 2021-04-04 14:03 | disposition home or self-care (01) ==
LOC: RAD 12:35
PROVIDERS: PCP Family Medicine; Referring Provider Physical Medicine & Rehabilitation; Visit Provider Physical Medicine & Rehabilitation
DX: M47.817 Spondylosis without myelopathy or radiculopathy, lumbosacral region (principal); M51.36 Other intervertebral disc degeneration, lumbar region
CPT/HCPCS: 64493; 99152; J0702; J2250; J3010

== ENCOUNTER → 2021-05-29 10:36 | Outpatient (CLI) | payer MEDICARE, OTHER, SELFPAY ==
[2021-05-29 12:55] LABS: COVID19 -Nasal RAPID Negative (Negative)
== END ==
PROVIDERS: PCP Family Medicine; Visit Provider Physical Medicine & Rehabilitation
DX: Z20.822 Contact with and (suspected) exposure to COVID-19 (principal)
CPT/HCPCS: 87635; C9803

== ENCOUNTER 2021-05-30 13:46 | Outpatient (CLI) | payer MEDICARE, OTHER, SELFPAY ==
[2021-05-30] VITALS (9 sets, daily range): BP systolic 121–173; BP diastolic 71–90; PULSE 56–62; RESP 13–18; TEMP 36.6; O2SAT 96–100
--- NOTE | 2021-05-30 13:48 | DI.RAD.S_ITS ---
PROCEDURE: PAIN L/S FACET INJ/BLK 1ST LIZZ COMPARISON: [facility], , PAIN L/S FACET INJ/BLK 1ST LIZZ, 04/04/2021, 14:23. INDICATIONS: SPONDYLOSIS FINDINGS: Multiple images demonstrate needle placement at the lumbosacral level. IMPRESSION: Needle placement as above. Dictated by: Marcio Sierra M.D. on 05/30/2021 at 15:39 Approved by: Marcio Sierra M.D. on 05/30/2021 at 16:32
[2021-05-30] MEDS: MIDAZOLAM 5 MG/5 ML VIAL IV (14:48)
[2021-05-30] MEDS: fentaNYL 100 MCG/2 ML INJ (14:49)
[2021-05-30] MEDS: BUPIVACAINE 0.5% (PF) VIAL 5 ML INJ (14:50)
[2021-05-30] MEDS: IOPAMIDOL 15 ML VIAL 3 ML INJ (14:50)
[2021-05-30] MEDS: LIDOCAINE 1% 20 ML (14:50)
--- NOTE | 2021-05-30 15:04 | P.PCN_ITS ---
Date/Time/Diagnoses Date of procedure: 05/30/21 Time of procedure: 15:04 Pre-procedure diagnosis: 1. FACET ARTHROPATHY Post-procedure diagnosis: same Procedure Notes Procedure: 1. BILATERAL- L5 and S1 MB BLOCKS Indications: Jhon is referred by Dr. Nicole for treatment of Bilateral Axial LBP. Physician: Jhon Kulkarni Total Fluoroscopy time (seconds): 10 Total sedation minutes: 12 Complications: none Procedure in detail & Post-procedure care: DESCRIPTION OF PROCEDURE Fluoroscopically guided, contrast-controlled bilateral L5 and S1 medial branch blocks with 0.5cc of 0.5% Marcaine. Following review of allergy and review of potential side effects and complications, including, but not necessarily limited to, infection, allergic reaction, local tissue breakdown, nerve injury, paralysis, stroke and possible , the patient indicated that the patient understood and agreed to proceed. An informed consent document was signed by the patient, witnessed by a nurse, and placed in the patient's chart. After review of previous anaesthesic history and IV conscious sedation the patient was deemed safe to proceed with today?s procedure with IV conscious sedation as ASA class II designation. Safety time-out was performed to confirm patient ID, procedure to be performed and site of procedure. IV sedation was accomplished with a combination of 2mg of Versed and 50mcg of Fentanyl was administered by the RN after DO order, titrated to patient comfort during the course of the procedure while the patient remained responsive to all verbal commands In the prone position, following sterile prep and drape of the lumbar region, the right L5 and S1 anatomical location of the medial branch of the dorsal ramus was identified fluoroscopically. Subsequently an anesthetic skin wheal using 1% lidocaine solution was initiated at each of the anatomical spots. Subsequently then a 22-gauge 3.5-inch spinal needle was atraumatically introduced and advanced under fluoroscopic guidance at each of the corresponding sites at the right L5 and S1 MB. After negative aspiration, 0.2 cc of Isovue 200 was injected, confirming placement without vascular or intrathecal uptake. Subsequently then 0.5 cc of 0.5% Marcaine solution was injected at each of the corresponding sites at the right L5 and S1 medial branch locations. The identical procedure was replicated on the left. The patient tolerated the proced ure well without signs or symptoms of complications. The patient tolerated the procedure well without signs or symptoms of complications prior to transfer to the recovery area continued monitoring wi thout incident. Post-procedure, the patient was monitored initiating provocative activities to measure the amount of relief from block of the facetogenic pain. The patient reported a VAS of 7 prior to the procedure and a post-procedure VAS of 1. It has been a pleasure to assist in the diagnostic and therapeutic care of your patient. POST OP INSTRUCTIONS The patient was provided with a Pain Log to complete over the next several hours and subsequent days prior to the patient's follow up with the ordering physician. If the patient has group controller relief to the solution applied, then they may be a candidate for medial branch rhizotomy. The patient is aware, was provided, once again, with a Pain Log and will follow up with the referring physician for review and clinical correlation.
== END 2021-05-30 15:25 | disposition home or self-care (01) ==
LOC: RAD 13:48
PROVIDERS: PCP Family Medicine; Referring Provider Physical Medicine & Rehabilitation; Visit Provider Physical Medicine & Rehabilitation
DX: M47.816 Spondylosis without myelopathy or radiculopathy, lumbar region (principal); M47.817 Spondylosis without myelopathy or radiculopathy, lumbosacral region
CPT/HCPCS: 64493; 99152; J2250; J3010

== ENCOUNTER → 2021-06-29 14:31 | Outpatient (CLI) | payer MEDICARE, OTHER, SELFPAY ==
--- NOTE | 2021-06-29 14:32 | DI.RAD.S_ITS ---
PROCEDURE: XR LUMBAR SPINE MIN 4V INDICATIONS: BACK PAIN TECHNIQUE: 5 views of the lumbar spine were acquired, including bilateral oblique views. COMPARISON: None. FINDINGS: Bones: 5 nonrib-bearing vertebrae are present. There is approximately 6 mm retrolisthesis of L2 on L3. Spinal alignment is otherwise normal. No vertebral body compression fractures. No suspicious bony lesions. Patient is status post posterior fusion and discectomy at L4-5. No hardware fracture. Degenerative changes including intervertebral disc space narrowing, endplate sclerosis and osteophytosis are present. Soft tissues: Overlying bowel gas pattern is normal. No suspicious soft tissue calcifications. Oblique images: No pars defects where visualized. IMPRESSION: 1. Postoperative change. 2. Degenerative change. 3. No pars interarticularis defects were visualized. 4. Grade 1 L2-3 retrolisthesis. Dictated by: Shelley Rae M.D. on 06/29/2021 at 17:45 Approved by: Shelley Rae M.D. on 06/29/2021 at 17:47
== END ==
PROVIDERS: PCP Family Medicine; Referring Provider Physical Medicine & Rehabilitation; Visit Provider Physical Medicine & Rehabilitation
DX: M47.27 Other spondylosis with radiculopathy, lumbosacral region (principal); M19.011 Primary osteoarthritis, right shoulder; Z98.1 Arthrodesis status; Z96.659 Presence of unspecified artificial knee joint; Z96.642 Presence of left artificial hip joint
CPT/HCPCS: 72110; 99214

== ENCOUNTER → 2021-07-17 11:50 | Outpatient (CLI) | payer MEDICARE, OTHER, SELFPAY ==
[2021-07-17 14:44] LABS: COVID19 -Nasal RAPID Negative (Negative)
== END ==
PROVIDERS: PCP Family Medicine; Visit Provider Physical Medicine & Rehabilitation
DX: Z20.822 Contact with and (suspected) exposure to COVID-19 (principal)
CPT/HCPCS: 87635; C9803

== ENCOUNTER 2021-07-18 07:31 | Outpatient (CLI) | payer MEDICARE, OTHER, SELFPAY ==
[2021-07-18] VITALS (9 sets, daily range): BP systolic 112–155; BP diastolic 69–87; PULSE 58–64; RESP 12–20; TEMP 36.5; O2SAT 98–100
--- NOTE | 2021-07-18 07:32 | DI.RAD.S_ITS ---
PROCEDURE: PAIN L/S MED/LAT N RFA BILAT INDICATIONS: SPONDYLOSIS COMPARISON: [facility], CR, XR LUMBAR SPINE MIN 4V, 06/29/2021, 14:47. [facility], XA, PAIN L/S FACET INJ/BLK 1ST LIZZ, 05/30/2021, 14:50. FINDINGS: Fluoroscopic spot filming was performed to verify placement of spinal needles on both sides at L5 and S1, as labeled on the films. IMPRESSION: Images during rhizotomy within normal limits. Dictated by: Christopher Caldwell M.D. on 07/18/2021 at 8:41 Approved by: Christopher Caldwell M.D. on 07/18/2021 at 8:41
[2021-07-18] MEDS: MIDAZOLAM 2 MG/2 ML VIAL IV ×2 (08:26→08:38)
[2021-07-18] MEDS: LIDOCAINE 1% 20 ML 5 ML INJ (08:33)
[2021-07-18] MEDS: BUPIVACAINE 0.5% (PF) VIAL 5 ML INJ (08:36)
--- NOTE | 2021-07-18 08:57 | P.PCN_ITS ---
Date/Time/Diagnoses Date of procedure: 07/18/21 Time of procedure: 08:57 Pre-procedure diagnosis: 1. RECALCITRANT FACET ARTHROPATHY Post-procedure diagnosis: same Procedure Notes Procedure: 1. BILATERAL L5 MEDIAL BRANCH RADIOFREQUENCY NEUROTOMY AND BILATERAL S1 DORSAL RAMUS BRANCH RADIOFREQUENCY NEUROTOMY. Indications: Jhon is referred by Dr. Nicole for treatment of facet arthropathy. Physician: Jhon Kulkarni Total Fluoroscopy time (seconds): 26 Total sedation minutes: 26 Complications: none Procedure in detail & Post-procedure care: DESCRIPTION OF PROCEDURE Bilateral L5 medial branch radiofrequency neurotomy and bilateral S1 dorsal ramus branch radiofrequency neurotomy under fluoroscopy with conscious sedation. The patient is well known to this clinic having undergone previous facet injections with good but temporary relief. The patient has experienced appropriate, concordant relief with previous facet and median branch blocks but the patient's pain has been recalcitrant to further conservative measures. Therefore, based upon the patient's relief and persistent symptoms, the patient is considered an appropriate candidate for facet rhizotomy. All of the patient's questions regarding the risks versus benefits of the procedure, including, but not limited to, bleeding, infection, temporary as well as lasting nerve injury, paralysis, stroke, and , as well treatment alternatives were answered to satisfaction. After obtaining informed consent, denial of pertinent drug allergies, as well as being made aware of the potential risks of bleeding, infection, spinal cord trauma, paralysis, temporary and permanent nerve damage, seizure, stroke, and possible , the patient was brought to the fluoroscopy suite and positioned prone on the fluoroscopy table. The lumbar region was prepped with Betadine and covered with a fenestrated drape in the usual sterile fashion. Appropriate monitors applied including pulse oximeter, pulse, and blood pressure for regular monitoring throughout the procedure. After review of previous anaesthesic history and IV conscious sedation the patient was deemed safe to proceed with today?s procedure with IV conscious sedation as ASA class II designation. Safety time-out was performed to confirm patient ID, procedure to be performed and site of procedure. IV sedation was accomplished with a combination of 4mg of Versed was administered by the RN after DO order, titrated to patient comfort during the course of the procedure while the patient remained responsive to all verbal commands. After local infiltration using 1% lidocaine, under fluoroscopic guidance, a 10- cm RF insulated needle with a 10-mm active tip was positioned parallel to the junction of the bilateral sacral ala and the superior articulating process where the S1 dorsal ramus resides. Needle placement was confirmed with motor stimulation of .5v on the right; motor stimulation of .6v on the left, which produced local stimulation without radicular component. The stimulation was then increased to 2v with, once again, only local multifidus stimulation without radicular component. This was then followed by two discreet lesions performed at 80 degrees Celsius for 90 seconds each. The needle was then removed and the identical procedure was performed along the length of the bilateral L5 medial branch with motor stimulation at .7v on the right; motor stimulation at .6v on the left. The patient tolerated the procedure well without signs or symptoms of complications prior to transfer to the recovery area continued monitoring without incident. The patient was then transferred to the recovery area where they were observed for an appropriate period of time after the injection. The patient reported a VAS score of 9 prior to the procedure and a post-pr ocedure VAS of 0. POST OP INSTRUCTIONS The patient was provided a Pain Log to continue to record the patient's response to the target-specific procedure prior to the patient's follow-up visit with the referring physician. Additionally, specific post-injection care instructions and a contact number to our office were provided if concerns arise regarding possible complications associated with the procedure are suspected.
== END 2021-07-18 09:15 | disposition home or self-care (01) ==
LOC: RAD 07:31
PROVIDERS: PCP Family Medicine; Referring Provider Physical Medicine & Rehabilitation; Visit Provider Physical Medicine & Rehabilitation
DX: M47.817 Spondylosis without myelopathy or radiculopathy, lumbosacral region (principal)
CPT/HCPCS: 64635; 99152; 99153; J2250